=== PATIENT | female | born 1955 | race Caucasian/White ===

== ENCOUNTER 2018-01-31 09:11 | Outpatient (CLI) | payer BC ==
[~2018-01-31] VITALS: Ht 167.6 cm; Wt 63.6 kg
[2018-01-31] MEDS ORDERED: ASPI-586 PO (09:27)
[2018-01-31] MEDS ORDERED: FEXO180T84 PO (09:27)
[2018-01-31] MEDS ORDERED: FLUT9.9S NS (09:27)
[2018-01-31 09:29] VITALS: BP 124/77
[2018-02-10] MEDS ORDERED: CEPH500C PO (15:48)
[2018-02-10] MEDS ORDERED: ACHD5005 PO (15:48)
== END 2018-01-31 10:18 | disposition home or self-care (01) ==
LOC: PREOP 09:11
PROVIDERS: ATTEND Podiatrist Foot & Ankle Surgery
DX: Z01.818 Encounter for other preprocedural examination (principal); M20.11 Hallux valgus (acquired), right foot; M20.41 Other hammer toe(s) (acquired), right foot
CPT/HCPCS: 87081

== ENCOUNTER 2018-02-10 11:39 | Day surgery (SDC) | payer BC ==
[~2018-02-10] VITALS: Ht 167.6 cm; Wt 63.6 kg
[~2018-02-10 11:39] MED LIST: ASPI-586 PO; FEXO180T84 PO; FLUT9.9S NS
[2018-02-10] MEDS ORDERED: ceFAZolin 1 GM/NS 50 ML IVPB IV ONE ×2 (12:15)
--- NOTE | 2018-02-10 12:27 | Progress Note-Pre Operative ---
Pre-Operative Progress Note H&P Reviewed The H&P was reviewed, patient examined and no changes noted. Date Seen by Provider: February 10, 2018 Time Seen by Provider: 12:26 Date H&P Reviewed: February 10, 2018 Time H&P Reviewed: 12:26 Pre-Operative Diagnosis: Hallux valgus, Hammertoes 2, & 3, hypertrophic 2 & 3 metatarasal, all right RADHA BOLAÑOS DPM February 10, 2018 12:27 pm
[2018-02-10] MEDS ORDERED: ceFAZolin INJECTION 1,000 MG in NS (IVPB) 50 ML IV ONE (12:30)
[2018-02-10] MEDS ORDERED: DEXAMETHASONE 10 MG/ML (DECADRON) 1 ML VIAL ONE (12:48)
[2018-02-10] MEDS ORDERED: SEVOFLURANE (ULTANE) 15 ML INHAL SOLN ONE ×11 (12:48→15:28)
[2018-02-10] MEDS ORDERED: MIDAZOLAM 2 MG/2 ML (VERSED) VIAL ONE (12:48)
[2018-02-10] MEDS ORDERED: proPOfol 200 MG/20 ML (DIPRIVAN) VIAL IV ONE (12:48)
[2018-02-10] MEDS ORDERED: fentaNYL INJECTION 100 MCG/2 ML AMP ONE ×2 (12:48→15:14)
[2018-02-10] MEDS ORDERED: ONDANSETRON 4 MG/2 ML (SDV) Z0FRAN ONE (12:48)
[2018-02-10] MEDS ORDERED: BUPIVACAINE 0.5% 30 ML (SENSORCAINE) VIAL ONE (12:51)
[2018-02-10] MEDS ORDERED: LIDOCAINE PF 2% 5 ML (XYLOCAINE) VIAL ONE (13:03)
[2018-02-10 14:53] VITALS: BP 127/80
[2018-02-10] MEDS ORDERED: LACTATED RINGERS 1,000 ML IV PRN (15:07)
[2018-02-10] MEDS ORDERED: HYDROcodone/APAP 5 MG/325 MG (LORTAB) TAB PO PRN (15:45)
[2018-02-10] MEDS ORDERED: LACTATED RINGERS 1,000 ML IV SCH (15:45)
--- NOTE | 2018-02-10 15:45 | Progress Note-Post Operative ---
Post-Operative Progess Note Surgeon (s)/Food Stand Manager (s) Surgeon RADHA BOLAÑOS DPM Food Stand Manager: none Pre-Operative Diagnosis Hallux valgus, Hammertoes 2, & 3, hypertrophic 2 & 3 metatarasal, all right Post-Operative Diagnosis same, plus subluxed right 3rd MTPJ Procedure & Operative Findings Date of Procedure 02/10/18 Procedure Performed/Findings Edu-Mono bunionectomy, 2nd & 3rd metatarsal osteotomy, reduction of hammertoes 2nd & 3rd, all right Anesthesia Type General Estimated Blood Loss Estimated blood loss (mL): minimal Specimens/Packing Specimens Removed none RADHA BOLAÑOS DPM February 10, 2018 3:45 pm
[2018-02-10] MEDS ORDERED: ACHD5005 PO (15:48)
[2018-02-10] MEDS ORDERED: CEPH500C PO (15:48)
[2018-02-10] MEDS ORDERED: morphine INJ 10 MG/ML 1ML (SYR OR VIAL) IVP PRN (16:00)
[2018-02-10] MEDS ORDERED: MEPERIDINE (DEMEROL) INJ 50 MG/ML IVP PRN (16:00)
[2018-02-10] MEDS ORDERED: ONDANSETRON 4 MG/2 ML (SDV) Z0FRAN IVP PRN (16:00)
--- NOTE | 2018-02-10 16:28 | Diagnostic Imaging Report ---
INDICATION: Postop evaluation of the right foot. FINDINGS: There are postsurgical changes of a bunionectomy. There has also been pinning of the second and third toes. There are screws in the distal second metatarsal and third metatarsal. Alignment is grossly normal. There is no acute fracture or dislocation. IMPRESSION: Stable postsurgical changes in the right foot, as described. There is some subcutaneous emphysema involving the dorsal aspect of the left foot, presumably postsurgical Dictated by: Dictated on workstation # [id number]
[2018-02-10 16:35] VITALS: BP 134/81
--- NOTE | 2018-02-10 16:37 | Anesthesia-General Post-Op ---
General Patient Condition Mental Status/LOC: Same as Preop Cardiovascular: Satisfactory Nausea/Vomiting: Absent Respiratory: Satisfactory Pain: Controlled Complications: Absent Post Op Complications Complications None Follow Up Care/Instructions Patient Instructions None needed. Anesthesia/Patient Condition Patient Condition Patient is doing well, no complaints, stable vital signs, no apparent adverse anesthesia problems. No complications reported per nursing. JESSEE GALVIN CRNA February 10, 2018 16:37
[2018-02-10 17:05] VITALS: BP 141/80
[2018-02-10] MEDS ORDERED: HYDROcodone/APAP 5 MG/325 MG (LORTAB) TAB ONE (17:10)
[2018-02-10 17:35] VITALS: BP 138/79
[2018-02-10 18:05] VITALS: BP 138/79
--- NOTE | 2018-02-11 01:07 | OPERATIVE REPORT ---
DATE OF SERVICE: 02/10/2018 SURGEON: Radha Bolaños DPM. PREOPERATIVE DIAGNOSES: 1. Hallux abductovalgus, metatarsus primus varus, right foot. 2. Hypertrophic second and third metatarsal heads, right foot. 3. 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 POSTOPERATIVE DIAGNOSES: 1. Hallux abductovalgus, metatarsus primus varus, right foot. 2. Hypertrophic second and third metatarsal heads, right foot. 3. 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 PROCEDURE: 1. Modified Edu-Mono bunionectomy, right. 2. Second and third metatarsal osteotomies with screw fixation. 3. Reduction of hammertoe to the second and third digits with a flexor tendon transfer on the right third toe. WOUND CLASS: Clean. ANESTHESIA: General. HEMOSTASIS: Pneumatic thigh tourniquet at 250 mmHg. INDICATIONS: This 62-year-old female presents with complaint of a painful right foot. Conservative therapy has met with unsatisfactory results and the patient is agreeable with surgical intervention after risks and complications were discussed at length. No guarantees were extended to the patient and she is willing to proceed. DESCRIPTION OF PROCEDURE: The patient was brought back to the operating table, placed in secure supine position. A general anesthetic was then induced. An appropriate timeout was performed. A pneumatic thigh tourniquet was placed on the right lower extremity over several layers of padding. A preoperative injection of 0.5% Marcaine plain was performed with 10 mL. The right foot was then prepped and draped in normal sterile manner. Right foot was then elevated and allowed to exsanguinate after which the tourniquet was inflated to 250 mmHg. Attention was then directed to the dorsal aspect of the right first metatarsophalangeal joint where a 7 cm longitudinal linear incision was created. The incision was deepened in the same plane with great care to identify and retract all vital neurovascular structures. All the necessary blood vessels were cauterized as encountered. The incision was deepened down to the capsule where a longitudinal capsulotomy was performed. The capsular tissue was spread from medial to lateral, exposing the hypertrophic medial eminence to the first metatarsal head, which was resected utilizing a power sagittal saw. Next, blunt dissection was carried out into the first intermetatarsal space where a lateral release was performed. The conjoint tendon of the adductor hallucis was released as well as a lateral capsulorrhaphy. The hallux was then forcibly adducted to releasing any additional fibers holding it in its abnormal position. Attention was redirected to the medial aspect of the first metatarsal where a Chevron-type osteotomy was performed with a power sagittal saw. The capital fragment was translocated laterally and fixated in its corrected position utilizing a 0.062 threaded K-wire with great care not to penetrate the articular cartilage. Excellent bony apposition and fixation was appreciated at this time. The head was further contoured and smoothed with a power sagittal saw and power bur. There remained some lateral deviation to the right hallux and an Mono type procedure was then performed. Subperiosteal dissection was carried out to the diaphysis of the proximal phalanx where a wedge of bone was resected with a power sagittal saw. The base was medial and lateral cortices held intact. Once the wedge of bone was resected and the gap closed, good reduction of the misalignment of the toe was appreciated. Two machine candle molder holes were created at the dorsal medial aspect of the osteotomy after which a 28-gauge monofilament wire was passed through the machine candle molder hole securing the osteotomy in a closed position. Excellent bony apposition and fixation was appreciated at this time. The wound was flushed with copious amounts of normal saline once again after which closure was performed in layers. Deep closure was performed with 3-0 Vicryl, superficial with 4-0 Vicryl, skin closed with 4-0 Prolene in a horizontal mattress type stitch. Attention was then directed to the right second ray where a 5 cm longitudinal linear incision was created starting at the surgical neck of the metatarsal extending to the distal interphalangeal joint. The incision was deepened in the same plane with great care to identify and retract all vital neurovascular structures. All the necessary blood vessels were cauterized as encountered. The incision was deepened down to the extensor tendon where a Z slide lengthening was performed. The extensor tendon was released as well as the extensor maldonado. A dorsal capsulorrhaphy was performed to the second metatarsophalangeal joint and a release of the medial and lateral collateral ligaments. This allowed the proximal phalanx to come down into rectus alignment. Next, an oblique osteotomy from dorsal to plantar was performed with the distal portion of the osteotomy medial and the proximal lateral. This allowed the capital fragment to translocate laterally and proximally and fixated in its correct position utilizing a 2.0 snap-off screw 14 mm of length. Excellent bony apposition and fixation was appreciated at this time. The wound was flushed with copious amounts of normal saline throughout the procedure. Attention was then directed to the proximal phalanx of the right second toe were the collateral ligaments were released and the head was fashioned into a peg utilizing a power sagittal saw and power bur. Utilizing the power bur, a hole was created to the base of the middle phalanx for the peg-in-hole type arthrodesis. A 0.054 smooth K-wire was driven down the toe securing the arthrodesis in a rectus alignment. The excess K-wire was cut and a protective ball placed over the end of the wire. Attention was then directed to the dorsal aspect of the right third ray where a 5 cm longitudinal linear incision was created from the surgical neck of the third metatarsal head to the distal interphalangeal joint of the toe. The incision was deepened in the same plane with great care to identify and retract all vital neurovascular structures. All the necessary blood vessels were cauterized as encountered. The extensor tendon was incised in a Z slide manner allowing the extensor tendon to reflect proximally and the extensor maldonado released. A dorsal capsulorrhaphy to the third metatarsophalangeal joint was performed where the base of the proximal phalanx was found to be articulating with the dorsal aspect of the third metatarsal head. Collateral ligaments were released. The digit would not come down into an alignment without third metatarsal osteotomy. Utilizing a power sagittal saw, a Farshad-type osteotomy was performed allowing the capital fragments to translocate proximally. Inspection of the plantar aspect of the third metatarsophalangeal joint indicated no residual plantar plate. The flexor tendons were exposed. It was then decided that a flexor tendon transfer rather than a plantar plate repair would be the only viable alternative for the patient at this point. The Farshad osteotomy was then fixated in its new position with capital fragments proximal utilizing a 2.0 snap-off screw of 12 mm of length from dorsal to plantar. Excellent bony apposition and fixation was appreciated. Utilizing a rongeur, the remaining dorsal eminence to the third metatarsal head was reduced. The wound was flushed with copious amounts of normal saline. Next, utilizing a 3.5 mm diameter drill, a hole was created from the dorsal to plantar aspect of the base of the proximal phalanx. Access to the flexor tendon was created at the proximal interphalangeal joint where the long flexor tendon was identified and released and was placed in through the hole created at the base of the proximal phalanx from plantar to dorsal was split and was sutured into the dorsal aspect of the proximal phalanx utilizing 2-0 FiberWire and a 3-0 Vicryl. Good reduction of the subluxation was appreciated at this time. The wound was flushed with copious amounts of normal saline. Next, the hammertoe was then addressed with an arthrodesis at the proximal interphalangeal joint. The head of the proximal phalanx was fashioned into a peg with a power sagittal saw and power bur. A hole was created to the base of the middle phalanx with a power bur. Next, a 0.045 smooth K-wire was then used to fixate the digit in its rectus alignment. The K-wire was retrograded across the metatarsophalangeal joint, securing the digit into a slightly plantarflexed position. The excess K-wire was cut and a protective ball placed over the end of the wire. Closure was then performed in layers. The deep closure was performed after copious amounts of normal saline were used for irrigation. Deep closure was performed with 3-0 Vicryl, superficial with 4-0 Vicryl, skin closure with 4-0 Prolene in a horizontal mattress type stitch. Postoperative injection consisted of 10 mL of 0.5% Marcaine injected in a local infusion to the surgical sites. Postoperative dressing consisted of Betadine soaked Adaptic, sterile 4 x 4, sterile Kerlix, all secured with a Coban wrap. The patient tolerated the anesthesia and procedure well, was transported from the operating room to the recovery area with vital signs stable and vascular status intact to all digits of the right foot. The patient is to follow up in my office in 10 days' period of time or sooner if necessary. She was given a prescription for Keflex and Vicodin. Job ID: [id number] DocumentID: [id number] Dictated Date: 02/10/2018 16:00:48 Commercial Cleaner Date: 02/10/2018 23:28:21 Dictated By: RADHA BOLAÑOS DPM
== END 2018-02-10 18:05 | disposition home or self-care (01) ==
LOC: SDC 11:39
PROVIDERS: ATTEND Podiatrist Foot & Ankle Surgery
DX: M20.11 Hallux valgus (acquired), right foot (principal); M89.371 Hypertrophy of bone, right ankle and foot; M20.41 Other hammer toe(s) (acquired), right foot
CPT/HCPCS: 73620; C1713